=== PATIENT | female | born 1990 | race Caucasian/White ===

== ENCOUNTER 2016-11-10 15:26 | Emergency (ER) | payer MEDICAID, OTHER ==
[2016-11-10 16:45] VITALS: BP 112/53; PULSE 80; O2SAT 98
[2016-11-10] MEDS ORDERED: Sodium Chloride 0.9% 1000 ML 1,000 ML IV STA (16:57)
[2016-11-10] MEDS ORDERED: Zofran 4 MG/2 ML VIAL IV ONE (16:58)
[2016-11-10] MEDS ORDERED: Zofran 4 MG/2 ML VIAL ONE (17:00)
[2016-11-10] MEDS ORDERED: Sodium Chloride 0.9% 1000 ML 1,000 ML ONE (17:00)
[2016-11-10 17:05] LABS: BASOPHIL % 0.2 % (0.0-0.4); Eosinophil % 1.2 % (0.00-5.0); Granulocytes % 76.7 % (36.0-66.0); Lymphocytes % 16.1 % (24.0-44.0); Mean Cell Volume 92.9 fl (78-100); Mean Corpuscular Hemoglobin 32.3 pg (26-32); Mean Platelet Volume 11.9 fl (6-9.5); Monocytes % 5.8 % (0.0-12.0); Platelet Count 207 K/mm3 (150-450); Red Blood Count 4.24 M/mm3 (4.1-5.4); Red Cell Distribution Width 11.9 % (11.5-14.0); White Blood Count 9.3 K/mm3 (4.0-10.5)
--- NOTE | 2016-11-10 17:06 | ERPHSYRPT ---
- History of Present Illness Time Seen by Provider: 11/10/16 17:00 Historian: patient Exam Limitations: no limitations Patient Subjective Stated Complaint: vomiting Triage Nursing Assessment: states normally vomited 2xdaily but has vomited x8 today. denies diarrhea. skin warm and dry. 11 weeks Physician History: Pt. is with one AB at around 6 weeks previously. Pt. is about 11 weeks GA and have been vomiting but not as much as present episode, usu X 2/day but now 8 /day today along with weakness and dizziness. Denies any abdominal pain or diarrhea. Denies any fever, chills, frequency, dysuria, or urgency. Timing/Duration: today Activities at Onset: rest Quality: other (No pain) Modifying Factors: Improves With: eating (worsens) Associated Symptoms: nausea, vomiting, weakness, No chest pain, No fever/chills Previous symptoms: same symptoms as today Allergies/Adverse Reactions: No Known Drug Allergies Allergy (Unverified 11/10/16 15:50) Home Medications: Vits W-Ca,Fe,FA(<1Mg) [] 1 each PO DAILY 05/21/16 [History] Hx Tetanus, Diphtheria Vaccination/Date Given: Yes Hx Influenza Vaccination/Date Given: No Hx Pneumococcal Vaccination/Date Given: No Immunizations Up to Date: Yes - Review of Systems Constitutional: Weakness, No Fever, No Chills Eyes: No Symptoms Ears, Nose, & Throat: No Symptoms Respiratory: No Cough, No Dyspnea Cardiac: No Chest Pain, No Edema, No Syncope Abdominal/Gastrointestinal: Nausea, Vomiting, No Abdominal Pain, No Diarrhea, No Constipation, No Appetite Changes Genitourinary Symptoms: No Dysuria Musculoskeletal: No Back Pain, No Neck Pain Skin: No Rash Neurological: Dizziness, No Focal Weakness, No Sensory Changes Psychological: No Symptoms Endocrine: No Symptoms All Other Systems: Reviewed and Negative - Past Medical History Pertinent Past Medical History: No - Past Surgical History Past Surgical History: No - Social History Smoking Status: Current every day smoker Exposure to second hand smoke: Yes Drug Use: marijuana Patient Lives Alone: No - Female History Expected Date of Delivery: 06/01/17 - Nursing Vital Signs Nursing Vital Signs: Initial Vital Signs Temperature 97.4 F Temperature Source Oral Pulse Rate 80 Respiratory Rate 18 Blood Pressure [Right Arm] 112/53 Pain Intensity 0 - Physical Exam General Appearance: no apparent distress, alert Eye Exam: PERRL/EOMI, eyes nml inspection Ears, Nose, Throat Exam: normal ENT inspection, pharynx normal, moist mucous membranes Neck Exam: normal inspection, non-tender, supple, full range of motion Respiratory Exam: normal breath sounds, lungs clear, No respiratory distress Cardiovascular Exam: regular rate/rhythm, normal heart sounds Gastrointestinal/Abdomen Exam: soft, No tenderness, No mass Back Exam: normal inspection, normal range of motion, No CVA tenderness, No vertebral tenderness Extremity Exam: normal inspection, normal range of motion, pelvis stable Neurologic Exam: alert, oriented x 3, cooperative, normal mood/affect, nml cerebellar function, sensation nml, No motor deficits Skin Exam: normal color, warm, dry SpO2: 98 Oxygen Delivery: Room Air - Course Nursing assessment & vital signs reviewed: Yes Ordered Tests: Active Orders 24 hr Category Date Time Status Clean Catch Urine Specimen STAT Care 11/10/16 16:57 Active Heart Tones-ED STAT Care 11/10/16 17:10 Active CBC W DIFF Stat Lab 11/10/16 17:03 Completed CMP Stat Lab 11/10/16 17:03 Completed UA W/ MICROSCOPIC Stat Lab 11/10/16 17:03 Completed Medication Summary Generic Name Dose Route Start Last Admin Trade Name Freq PRN Reason Stop Dose Admin Sodium Chloride 1,000 mls @ 999 mls/hr 11/10/16 16:57 11/10/16 17:03 Sodium Chloride 0.9% 1000 Ml IV 11/10/16 17:57 999 mls/hr .Q1H1M STA Administration Discontinued Medications Generic Name Dose Route Start Last Admin Trade Name Freq PRN Reason Stop Dose Admin Sodium Chloride Confirm 11/10/16 17:00 Sodium Chloride 0.9% 1000 Ml Administered 11/10/16 17:01 Dose 1,000 mls @ ud .ROUTE .STK-MED ONE Ondansetron HCl 4 mg 11/10/16 16:58 11/10/16 17:03 Zofran 4 Mg/2 Ml Vial IV 11/10/16 16:59 4 mg STAT ONE Administration Ondansetron HCl Confirm 11/10/16 17:00 Zofran 4 Mg/2 Ml Vial Administered 11/10/16 17:01 Dose 4 mg .ROUTE .STK-MED ONE Lab/Rad Data: Laboratory Result Diagrams 11/10/16 17:03 11/10/16 17:03 Laboratory Results 11/10/16 11/10/16 11/10/16 Range/Units 17:03 17:03 17:03 WBC 9.3 (4.0-10.5) K/mm3 RBC 4.24 (4.1-5.4) M/mm3 Hgb 13.7 (12.0-16.0) gm/dl Hct 39.4 (35-47) % MCV 92.9 (78-100) fl MCH 32.3 H (26-32) pg MCHC 34.8 (32-36) g/dl RDW 11.9 (11.5-14.0) % Plt Count 207 (150-450) K/mm3 MPV 11.9 H (6-9.5) fl Gran % 76.7 H (36.0-66.0) % Lymphocytes % 16.1 L (24.0-44.0) % Monocytes % 5.8 (0.0-12.0) % Eosinophils % 1.2 (0.00-5.0) % Basophils % 0.2 (0.0-0.4) % Basophils # 0.02 (0-0.4) Sodium 138 (136-145) mEq/L Potassium 3.4 L (3.5-5.1) mEq/L Chloride 103 (98-107) mEq/L Carbon Dioxide 22.2 (21-32) mEq/L Anion Gap 16.1 H (5-15) MEQ/L BUN 6 L (9-20) mg/dL Creatinine 0.66 (0.55-1.30) mg/dl Estimated GFR > 60 ML/MIN Glucose 83 (70-110) MG/DL Calcium 9.1 (8.5-10.1) mg/dL Total Bilirubin 0.40 (0.2-1.0) mg/dL AST 25 (15-37) U/L ALT 54 (12-78) U/L Alkaline Phosphatase 34 L (46-116) U/L Serum Total Protein 7.8 (6.4-8.2) gm/dL Albumin 3.5 (3.4-5.0) g/dL Ur Collection Type VOID Urine Color YELLOW (YELLOW) Urine Appearance SLIGHTLY CLOUDY (CLEAR) Urine pH 7.0 (5-6) Ur Specific [place] 1.020 (1.005-1.025) Urine Protein 30 (Negative) Urine Glucose (UA) NEGATIVE (NEGATIVE) mg/dL Urine Ketones >=160 (NEGATIVE) Urine Nitrite NEGATIVE (NEGATIVE) Urine Bilirubin SMALL (NEGATIVE) Urine Urobilinogen 0.2 (0-1) mg/dL Urine WBC (Auto) NEGATIVE (NEGATIVE) Urine RBC (Auto) NEGATIVE (0-5) Luis F/ul Urine Microscopic WBC 0-2 (0-5) /HPF Ur Epithelial Cells MODERATE (FEW) /HPF Urine Bacteria FEW (NEGATIVE) /HPF Urine Mucus MODERATE (NEGATIVE) /HPF Specimen Received 11/10/16 1700 - Progress Progress: improved Progress Note: 11/10/16 17:18 Pt. given IVF's and Zofran with some relief of her symptoms. 11/10/16 17:39 FHT's 180's Counseled pt/family regarding: diagnosis - Departure Time of Disposition: 17:39 Departure Disposition: Home Clinical Impression: Hyperemesis gravidarum Condition: Stable Critical Care Time: No Instructions: Vomiting -- Adult Additional Instructions: RX: Zofran Clear liquids for next 1-2 days Return for worse vomiting, dizziness, weakness, abdominal pain or any problems. Prescriptions: Ondansetron [Zofran Odt] 4 mg PO Q6H PRN PRN #10 tab.rapdis PRN Reason: Nausea/Vomiting
[2016-11-10 17:07] LABS: Collection Type VOID
[2016-11-10 17:08] LABS: COMPLETE URINE MICROSCOPIC? YES
[2016-11-10 17:14] LABS: ALBUMIN 3.5 g/dL (3.4-5.0); ALKALINE PHOSPHATASE 34 U/L (46-116); ANION GAP 16.1 MEQ/L (5-15); BLOOD UREA NITROGEN 6 mg/dL (9-20); CHLORIDE 103 mEq/L (98-107); Carbon Dioxide 22.2 mEq/L (21-32); Glucose 83 MG/DL (70-110); Potassium 3.4 mEq/L (3.5-5.1); SGOT/AST 25 U/L (15-37); SGPT/ALT 54 U/L (12-78); SODIUM 138 mEq/L (136-145); Total Protein 7.8 gm/dL (6.4-8.2)
[2016-11-10 17:15] LABS: Bacteria FEW /HPF (NEGATIVE); Epithelial Cells MODERATE /HPF (FEW); Mucus MODERATE /HPF (NEGATIVE); WBC 0-2 /HPF (0-5)
== END 2016-11-10 18:10 | disposition home or self-care (01) ==
LOC: ED 15:26
DX: O21.0 Mild hyperemesis gravidarum (principal)
CPT/HCPCS: 36415; 80053; 81000; 85025; 96360; 96374; 99284; J2405

== ENCOUNTER 2023-02-10 07:06 | Day surgery (SDC) | payer OTHER ==
[2023-02-10 07:29] VITALS: RESP 16; TEMP 97.9; O2SAT 97
[2023-02-10] MEDS ORDERED: CEFAZOLIN 2 GM-D5W BAG** 2 GM/50 ML ML IV SCH (07:30)
[2023-02-10] MEDS ORDERED: Lactated Ringers 1,000 ML IV SCH (07:30)
[2023-02-10] MEDS ORDERED: DIPRIVAN 200 MG/20 ML IV ONE (08:52)
[2023-02-10] MEDS ORDERED: SUBLIMAZE 100 MCG/2 ML ONE ×3 (08:52→10:58)
[2023-02-10] MEDS ORDERED: Xylocaine-Mpf 2% 5 Ml Vial ONE (08:52)
[2023-02-10] MEDS ORDERED: Decadron 4 MG INJ ONE ×2 (08:53→08:59)
[2023-02-10] MEDS ORDERED: Zofran 4 MG/2 ML VIAL ONE (08:53)
[2023-02-10] MEDS ORDERED: Transderm Scop 1.5MG Patch ONE (09:04)
[2023-02-10] MEDS ORDERED: Transderm Scop 1.5MG Patch TOP ONE (09:06)
[2023-02-10] MEDS ORDERED: Versed 2 MG/2 ML Injection IV PRN (09:33)
[2023-02-10] MEDS ORDERED: TORAdol 30 mg Injection ONE (10:16)
[2023-02-10 11:57] VITALS: BP 96/54; PULSE 57
--- NOTE | 2023-02-16 08:10 | OP ---
SURGERY DATE/TIME: 02/10/2023 0947 PREOPERATIVE DIAGNOSIS: Missed . POSTOPERATIVE DIAGNOSIS: Missed . PROCEDURE: Suction D&C. SURGEON: Benito Carrera D.O. SATELLITE DISH REPAIRER: Rohsni Lange surgical dental assistant. ANESTHESIA: General. ESTIMATED BLOOD LOSS: Minimal. COMPLICATIONS: None. INDICATIONS: The risks, benefits, indications and alternatives of the procedure were reviewed with the patient prior to the procedure. The patient understood the risk of infection, bleeding, bowel injury, bladder injury, uterine perforation, pelvic infection and thromboembolic disorder associated with the surgery and desires to have this surgery as a possible means to alleviate her current medical condition. DESCRIPTION OF PROCEDURE AND FINDINGS: At this time the patient is taken to the operating room, given general sedation, placed in the dorsal lithotomy position, prepped and draped in the usual sterile fashion. A weighted speculum is then placed in the patient's vagina and the anterior lip of the cervix is grasped with a single tooth tenaculum. Endocervical dilators were advanced through the endocervical canal as a means to dilate the cervix and a #7 curved suction Vacurette was then placed into the endocervical canal towards the fundal region where the suction machine was turned on and the products of conception was removed with suctioning and was done so without complication. After complete suctioning a curette was then placed into the fundus of the uterus and curettage was performed in all quadrants of the uterus retrieving remaining products of conception. From this point, all instruments were removed from the patient's vaginal region. There was no bleeding that was noted. The patient was then taken out of the dorsal lithotomy position, was taken out of anesthesia and was then taken to the recovery room in stable condition. All instruments and laps were accounted for x2.
== END 2023-02-10 11:50 | disposition home or self-care (01) ==
LOC: SDC 07:06
PROVIDERS: ATTEND Obstetrics & Gynecology
DX: O02.1 Missed abortion (principal)
CPT/HCPCS: 36415; 86901; 88305; 88342; J0690; J1100; J1885; J2250; J2405; J2704; J3010; A9270-GY

== ENCOUNTER 2024-07-02 20:41 | Inpatient (IN) | payer OTHER ==
[2024-07-02] MEDS ORDERED: TYLENOL EXTRA STRENGTH 500 MG PO PRN (21:31)
[2024-07-02] MEDS ORDERED: Zofran 4 MG/2 ML VIAL IV PRN (21:31)
[2024-07-02] MEDS ORDERED: XYLOCAINE 1% HCL 20 ML MDV IJ PRN (21:31)
[2024-07-02 22:00] LABS: Absolute Neutrophil Ct (ANC) 7.65 x10^3/uL (1.56-6.13); BASOPHIL % 0.3 % (0.1-1.2); Basophil (Absolute #) 0.03 x10^3/uL (0.01-0.08); Eosinophil % 0.9 % (0.7-5.8); Eosinophil (Absolute #) 0.09 x10^3/uL (0.04-0.36); Hematocrit 34.6 % (34.1-44.9); Hemoglobin 11.9 g/dL (11.2-15.7); IMMATURE GRAN # 0.07 x10^3u/L (0.001-0.031); IMMATURE GRAN % 0.7 % (0.001-0.429); Lymphocyte (Absolute #) 1.63 x10^3/uL (1.18-3.74); Mean Cell Volume 94.5 fL (79.4-94.8); Mean Corpuscular Hemoglobin 32.5 pg (25.6-32.2); Mean Corpuscular Hgb Concent. 34.4 g/dL (32.2-35.5); Mean Platelet Volume 10.2 fL (9.4-12.3); Monocyte (Absolute #) 0.73 x10^3/uL (0.24-0.86); Monocytes % 7.2 % (4.7-12.5); Neutrophil % 74.9 % (34.0-71.1); Platelet Count 206 x10^3/uL (182-369); Red Blood Count 3.66 x10^6/uL (3.93-5.22); Red Cell Distribution Width 12.6 % (11.7-14.4); White Blood Count 10.2 x10^3/uL (3.98-10.04)
[2024-07-02] MEDS ORDERED: PITOCIN 30 UNITS/ LR 500 ML 30 UNITS/500 ML PLAST..BAG IV SCH (22:00)
[2024-07-02 22:01] LABS: Appearance Clear (Clear); Bacteria Few /HPF (None Seen); Bilirubin Negative (Negative); Blood Negative (Negative); Epithelial Cells None Seen /HPF (None Seen); Glucose, Urine Negative (Negative); Hyaline Casts NONE SEEN /LPF (0-2); Ketones Trace (Negative); Leukocyte Esterase Small (Negative); Nitrite Negative (Negative); Protein,Urine Dip Negative (Negative); RBC 0-2 /HPF (0-5); Specific Gravity 1.015 (1.005-1.030); Urobilinogen 0.2 mg/dL (0.2); WBC 21-50 /HPF (0-5)
[2024-07-02] MEDS ORDERED: Lactated Ringers 1,000 ML IV ONE (22:03)
[2024-07-02] MEDS ORDERED: OMNIPEN 2 GM ONE (22:03)
[2024-07-02] MEDS ORDERED: Sodium Chloride 0.9% 100 ML ONE (22:06)
[2024-07-02] MEDS ORDERED: Sodium Chloride 100ML MINI-BAG PLUS 100 ML IV ONE (22:08)
[2024-07-02] MEDS: OMNIPEN 2 GM*** 2 G in Sodium Chloride 100ML MINI-BAG PLUS 100 ML IV ONE (22:13)
[2024-07-02] MEDS: Lactated Ringers 1,000 ML IV SCH (22:13)
[2024-07-02 22:19] LABS: Amphetamine,Urine NEGATIVE (NEGATIVE); Barbiturate,Urine NEGATIVE (NEGATIVE); Benzodiazepine,Urine NEGATIVE (NEGATIVE); Cocaine,Urine NEGATIVE (NEGATIVE); Methadone,Urine NEGATIVE (NEGATIVE); Opiate,Urine NEGATIVE (NEGATIVE); PCP,Urine NEGATIVE (NEGATIVE); THC,Urine NEGATIVE (NEGATIVE)
[2024-07-02 23:32] LABS: ABO TYPING B; Antibody Screen NEGATIVE (NEGATIVE); RH TYPING POSITIVE
[2024-07-03] MEDS ORDERED: OMNIPEN 1 GM ONE ×2 (02:07→06:04)
[2024-07-03] MEDS ORDERED: Sodium Chloride 100ML MINI-BAG PLUS 100 ML IV ONE ×2 (02:07→06:05)
[2024-07-03] MEDS: OMNIPEN 1 GM*** 1 GM in Sodium Chloride 100ML MINI-BAG PLUS 100 ML IV SCH ×2 (02:12→10:15)
[2024-07-03] MEDS: Lactated Ringers 1,000 ML IV ONE (02:50)
[2024-07-03] MEDS: FENTANYL 2 MCG-BUPIV 0.125%-NS 250 ML Epidur 250 ML EPIDURAL SCH (03:22)
[2024-07-03] MEDS: Ephedrine Sulfate 50 MG/ML IV PRN (03:50)
[2024-07-03] MEDS ORDERED: BRETHINE 1 MG/ML SQ PRN (08:21)
[2024-07-03] MEDS: PITOCIN 30 UNITS/ LR 500 ML 30 UNITS/500 ML PLAST..BAG IV SCH (08:48)
[2024-07-03] MEDS ORDERED: Mylicon 80MG PO PRN (15:06)
[2024-07-03] MEDS ORDERED: Dulcolax 10 MG SUPP PR PRN (15:06)
[2024-07-03] MEDS ORDERED: Anucort-HC SUPPOSITORY PR PRN (15:06)
[2024-07-03] MEDS ORDERED: Ambien 10 MG PO PRN (15:06)
[2024-07-03] MEDS ORDERED: NORCO 5/325 MG PO PRN (15:06)
[2024-07-03] MEDS: MOTRIN 400 MG PO PRN (16:45)
[2024-07-03] MEDS: Dermoplast Spray TP PRN (16:45)
[2024-07-03] MEDS: CORTISONE 1% CREAM TP PRN (16:46)
[2024-07-03] MEDS: TUCKS TP PRN (16:46)
[2024-07-03] MEDS: TYLENOL EXTRA STRENGTH 500 MG PO PRN (20:32)
[2024-07-03] MEDS: Docusate Sodium 100 MG PO SCH (22:27)
[2024-07-03 22:30] VITALS: O2SAT 97
[2024-07-03] MEDS: LANSINOH 40 GM TOP PRN (23:22)
[2024-07-04 05:28] LABS: Absolute Neutrophil Ct (ANC) 8.29 x10^3/uL (1.56-6.13); BASOPHIL % 0.4 % (0.1-1.2); Basophil (Absolute #) 0.04 x10^3/uL (0.01-0.08); Eosinophil % 1.2 % (0.7-5.8); Eosinophil (Absolute #) 0.13 x10^3/uL (0.04-0.36); Hematocrit 28.4 % (34.1-44.9); Hemoglobin 9.7 g/dL (11.2-15.7); IMMATURE GRAN # 0.09 x10^3u/L (0.001-0.031); IMMATURE GRAN % 0.8 % (0.001-0.429); Lymphocyte (Absolute #) 1.65 x10^3/uL (1.18-3.74); Mean Cell Volume 96.9 fL (79.4-94.8); Mean Corpuscular Hemoglobin 33.1 pg (25.6-32.2); Mean Corpuscular Hgb Concent. 34.2 g/dL (32.2-35.5); Mean Platelet Volume 9.9 fL (9.4-12.3); Monocyte (Absolute #) 0.81 x10^3/uL (0.24-0.86); Monocytes % 7.4 % (4.7-12.5); Neutrophil % 75.2 % (34.0-71.1); Platelet Count 160 x10^3/uL (182-369); Red Blood Count 2.93 x10^6/uL (3.93-5.22)
--- NOTE | 2024-07-04 07:48 | PCM.NOTE ---
Date and Time: 07/04/2426 Subjective Assessment: sp ppd 1 pt resting in bed doing well able to ambulate and tolerate diet vss afebrile abd; soft uterus; firm lochia; mild hgb; 9 a/p sp ppd 1 dc home tomorrow should fu in office in 3 wks Objective Data Vital Signs: Vital Signs - 24 hr Temp Pulse Resp BP BP Pulse Ox 07/04/24 03:02 97.5 F 72 18 89/50 97 07/03/24 22:00 98.1 F 71 18 97/52 97 07/03/24 16:30 98.6 F 80 16 98/55 95 07/03/24 14:55 98.6 F 90 16 112/55 95 07/03/24 14:40 98.6 F 81 16 106/56 96 07/03/24 14:25 98.6 F 92 H 16 101/57 96 07/03/24 14:10 98.6 F 95 H 16 115/60 95 07/03/24 13:55 98.6 F 104 H 22 137/110 95 07/03/24 13:40 98.6 F 130 H 22 101/56 95 07/03/24 13:15 98.6 F 104 H 22 101/56 92 L 07/03/24 13:00 28 H 115/64 97 07/03/24 12:45 114 H 28 H 115/64 97 07/03/24 12:30 114 H 24 115/57 98 07/03/24 12:15 91 H 24 107/57 97 07/03/24 12:00 91 H 22 86/52 97 07/03/24 11:45 91 H 22 125/59 97 07/03/24 11:30 91 H 22 125/59 97 07/03/24 11:15 85 18 120/58 97 07/03/24 11:00 82 18 104/60 97 07/03/24 10:45 80 20 94/52 97 07/03/24 10:30 84 20 94/52 97 07/03/24 10:15 76 20 93/50 97 07/03/24 10:00 80 20 89/55 97 07/03/24 09:45 72 18 98 07/03/24 09:30 77 18 108/60 96 07/03/24 09:15 76 18 99/54 96 07/03/24 09:00 74 18 94/52 96 07/03/24 08:45 82 18 94/52 96 07/03/24 08:30 85 18 105/58 96 07/03/24 08:00 73 18 102/68 96 Pain Assessment - Last Documented Pain Intensity [Anterior] 10 Pain Intensity 1 Pain Scale Used 0-10 Pain Scale Intake and Output: Intake & Output 07/01/24 07/02/24 07/03/24 07/04/24 11:59 11:59 11:59 11:59 Intake Total 5078 2689 Output Total 1250 200 Balance 3828 2489 Weight 86.183 kg Lab Results: Lab Results-Last 24 Hours 07/04/24 Range/Units 04:55 WBC 11.0 H (3.98-10.04) x10^3/uL RBC 2.93 L (3.93-5.22) x10^6/uL Hgb 9.7 L (11.2-15.7) g/dL Hct 28.4 L (34.1-44.9) % MCV 96.9 H (79.4-94.8) fL MCH 33.1 H (25.6-32.2) pg MCHC 34.2 (32.2-35.5) g/dL RDW 13.0 (11.7-14.4) % Plt Count 160 L (182-369) x10^3/uL MPV 9.9 (9.4-12.3) fL Gran % 75.2 H (34.0-71.1) % Immature Gran % (Auto) 0.8 H (0.001-0.429) % Nucleat RBC Rel Count 0.0 (0.00-0.2) % Eos # (Auto) 0.13 (0.04-0.36) x10^3/uL Immature Gran # (Auto) 0.09 H (0.001-0.031) x10^3u/L Absolute Lymphs (auto) 1.65 (1.18-3.74) x10^3/uL Absolute Monos (auto) 0.81 (0.24-0.86) x10^3/uL Absolute Nucleated RBC 0.00 (0.00-0.012) x10^3u/L Lymphocytes % 15.0 L (19.3-51.7) % Monocytes % 7.4 (4.7-12.5) % Eosinophils % 1.2 (0.7-5.8) % Basophils % 0.4 (0.1-1.2) % Absolute Granulocytes 8.29 H (1.56-6.13) x10^3/uL Basophils # 0.04 (0.01-0.08) x10^3/uL Multi-Disciplinary Progress Notes: Multi-Disciplinary Progress Notes 07/03/24 15:37 Respiratory Note by Roshni Wynn rt called for delivery. baby went to mom initially and then came to warmer. approximately 4-5 old pts spo2 68%. pt initially placed on cpap 5cm with arnoldo t at rm air. pt grunting and retractions and tachypneic at this point. pt continued to have low spo2's and pts fio2 increased to 30%. pt continued on 5cm cpap with 30%. pt suctioned multiple times with bulb syringe. pt had a lot of secretions. rt attempted to take cpap off and leave with blow with fio2 at 30%. pt could not maintain spo2s and continued to have grunting. pt placed back on cpap of 5cm with 25% fio2. rt did delee pt for about 11cc fluid. pt placed on dora cannula with 5cm pressure and 21% fio2. pt continued on this until able to completely transition with spo2 maintaining at 95% and resp rate 50's and no retractions or grunting. Initialized on 07/03/24 15:37 - END OF NOTE Assessment/Plan (1) Vaginal delivery Current Visit: Yes Status: Acute Code(s): O80 - ENCOUNTER FOR FULL-TERM UNCOMPLICATED DELIVERY
--- NOTE | 2024-07-04 07:52 | PCM.DS ---
Discharge Summary Date of Admission: 07/02/24 20:41 Admitting Physician: JAMAAL GERARD DO Consults: Consults on Case 07/02/24 21:34 Notify Anesthesia Provider PRN 07/03/24 19:36 Navigation ONCE Primary Care Provider: GLADYS BUTTS Allergies Allergies No Known Drug Allergies Allergy (Verified 02/09/23 15:52) Hospital Summary - Hospital Course Hospital Course: pt admitted on jul 02 for being in labor at 38 4/7 wks gestation and arrived to labor delivery at 5cm and subseqeuntly progressed with having an epidural and on jul 03 delivered live baby boy via without complication with no perineal tears. during visit pt was noted having a hgb at 9 and was instructed to continue her iron supplementation for at least the next month. denies complaints and was advised to fu in office in 3 wks. pts vitals were stable and at this time pt was stable for discharge on jul 05. all questions answered to her satisfaction. - Vitals & Intake/Output Vital Signs: Vital Signs Temperature 97.5 F 07/04/24 03:02 Pulse Rate 72 07/04/24 03:02 Respiratory Rate 18 07/04/24 03:02 Blood Pressure 89/50 07/04/24 03:02 O2 Sat by Pulse Oximetry 97 07/04/24 03:02 Intake & Output: Intake & Output 07/01/24 07/02/24 07/03/24 07/04/24 11:59 11:59 11:59 11:59 Intake Total 5078 2689 Output Total 1250 200 Balance 3828 2489 Weight 86.183 kg - Lab Result Diagrams: 07/04/24 04:55 Lab Results-Last 24 Hrs: Lab Results-Last 24 Hours 07/04/24 Range/Units 04:55 WBC 11.0 H (3.98-10.04) x10^3/uL RBC 2.93 L (3.93-5.22) x10^6/uL Hgb 9.7 L (11.2-15.7) g/dL Hct 28.4 L (34.1-44.9) % MCV 96.9 H (79.4-94.8) fL MCH 33.1 H (25.6-32.2) pg MCHC 34.2 (32.2-35.5) g/dL RDW 13.0 (11.7-14.4) % Plt Count 160 L (182-369) x10^3/uL MPV 9.9 (9.4-12.3) fL Gran % 75.2 H (34.0-71.1) % Immature Gran % (Auto) 0.8 H (0.001-0.429) % Nucleat RBC Rel Count 0.0 (0.00-0.2) % Eos # (Auto) 0.13 (0.04-0.36) x10^3/uL Immature Gran # (Auto) 0.09 H (0.001-0.031) x10^3u/L Absolute Lymphs (auto) 1.65 (1.18-3.74) x10^3/uL Absolute Monos (auto) 0.81 (0.24-0.86) x10^3/uL Absolute Nucleated RBC 0.00 (0.00-0.012) x10^3u/L Lymphocytes % 15.0 L (19.3-51.7) % Monocytes % 7.4 (4.7-12.5) % Eosinophils % 1.2 (0.7-5.8) % Basophils % 0.4 (0.1-1.2) % Absolute Granulocytes 8.29 H (1.56-6.13) x10^3/uL Basophils # 0.04 (0.01-0.08) x10^3/uL - Procedures and Test Procedures and Tests throughout Hospitalization: Therapy Orders & Screens 07/03/24 15:36 Standby STAT Comment: Final Diagnosis/Problem List - Final Discharge Diagnosis/Problem (1) Vaginal delivery Current Visit: Yes Status: Acute Code(s): O80 - ENCOUNTER FOR FULL-TERM UNCOMPLICATED DELIVERY - Discharge Disposition: Home, Self-Care Condition: Stable Prescriptions: No Action Ferrous Sulfate [Iron] 1 tab PO DAILY Pnv 102/Iron/Folate/Dha [Vitafol Fe Plus Softgel] 1 each PO DAILY Follow up with: GLADYS BUTTS NP [Primary Care Provider] - JAMAAL GERARD DO [ACTIVE STAFF] - 3 weeks (should call me for any issues that may arise upon discharge should fu in office in 3 wks)
[2024-07-04] MEDS: FERREX 150 PO SCH (09:19)
[2024-07-04 13:25] LABS: RPR Non Reactive (Non Reactive)
[2024-07-05 11:25] VITALS: BP 118/60; PULSE 61; RESP 16; TEMP 97.1
== END 2024-07-05 10:40 | disposition home or self-care (01) | DRG 807 ==
LOC: OB 20:41 → OBSVTOIN 20:41 → OB 20:42
PROVIDERS: ADMIT Obstetrics & Gynecology; ATTEND Obstetrics & Gynecology
PROC: 10E0XZZ Delivery of Products of Conception, External Approach (ICD-10-PCS; principal; 2024-07-03)
DX: O99.02 Anemia complicating childbirth (principal); Z37.0 Single live birth; Z3A.38 38 weeks gestation of pregnancy
CPT/HCPCS: 36415; 59409; 80307; 81001; 85025; 86592; 86850; 86900; 86901; 87086; 94799; J0290; J2590; A9270-GY